=== PATIENT | female | born 1990 | race African-American/Black ===

== ENCOUNTER 2016-10-02 21:02 | Inpatient (IN) | payer OTHER ==
[~2016-10-02] VITALS: Ht 154.9 cm; Wt 75.3 kg
[~2016-10-02 21:02] MED LIST: ANUSOL HC30 GM TOP; CIPRO 500MG TA500 MG PO; IBUPROFEN800 MG PO; MOTRIN 600 MG600 MG PO; PRENATAL1 TA1 PO; ZOFRAN4 M1 PO
[2016-10-02 23:08] LABS: ABSOLUTE BASOPHIL COUNT 0 /CUMM (0.0-0.2); ABSOLUTE EOSINOPHIL COUNT 0.1 /CUMM (0.0-0.7); ABSOLUTE LYMPH COUNT 1.3 /CUMM (1.2-3.4); ABSOLUTE MONOCYTE COUNT 0.6 /CUMM (0.10-0.60); BASOPHIL % 0.3 % (0.0-2.0); EOSINOPHIL % 1.3 % (0-5); GRANULOCYTE % 74.3 % (42.2-75.2); MEAN CORPUSCULAR HGB 25.7 PG (27.0-31.0); MEAN CORPUSCULAR HGB CONC 32.8 G/DL (33.0-37.0); MEAN CORPUSCULAR VOLUME 78.3 FL (81.0-99.0); MEAN PLATELET VOLUME 9.6 FL (7.4-10.4); PLATELET COUNT 214 /CUMM (130-400); RBC DISTRIBUTION WIDTH 15.4 % (11.5-14.5); RED BLOOD CELL CT 3.56 /CUMM (4.20-5.40); WHITE BLOOD CELL COUNT 8.1 /CUMM (4.8-10.8)
--- NOTE | 2016-10-03 06:40 | History & Physical ---
General Information and HPI MD Statement: I have seen and personally examined ERICA CAMACHO and documented this H&P. The patient is a 26 year old female at [39] weeks and [6] days gestation who presented with a chief complaint of [PROM]. Source of Information: police History of Present Illness: 26yo lmp 01/02/16 EDC 10/08/16 at 39w6d who presnts with PROM, amnisure positive. care incomplete due to noncompliance. Never had GCT but Hgb a1c is 5. Urine tox neg. 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 EENTM: Reports: no symptoms. Cardiovascular: Reports: no symptoms. Respiratory: Reports: no symptoms. GI: Reports: no symptoms. Genitourinary: Reports: no symptoms. Musculoskeletal: Reports: no symptoms. Skin: Reports: no symptoms. Neurological/Psychological: Reports: no symptoms. Hematologic/Endocrine: Reports: no symptoms. Immunologic/Allergic: Reports: no symptoms. All Other Systems: Reviewed and Negative Date of LMP: 01/02/16 Exam & Diagnostic Data Obstetric Exam Wgt Gained During : 25 Pelvimetry: gynecoid Dilation (cm): 0 Effacement (%): 0 Station: -2 Membranes: SROM Fluid: clear Fundal Height (cm): 38 Multiple Gestation? No Contractions: q2-4 #1 - FHR Baseline: 120 Category: 1 Estimated Weight: 6.5 Presentation: cephalic Patient for Induction? No Physical Exam: HEENT: NCAT Chest: CTA CV: nl S1S2 Abd: cephalic, gravid, 6.5 Ext: no c/c/e Labs Blood Type & Rh: B pos Antibody Screen: neg Hct/Hgb & Platelets #1: Hct/Hgb & Platelets #2: [id number] Rubella: imm VDRL #1: nr VDRL #2: nr HbsAg: neg HIV #1: neg HIV #2 neg 1 Hr P Group B Strep: unknown Initial Ultrasound: wnl Anatomy Ultrasound: wnl Ultrasound for EFW: n/a Genetic Testing: neg Assessment/Plan Assessment/Plan: PROM at term expectant mgmt As Ranked By This Provider Problem List: 1. Core Measures/Miscellaneous Venous Thromboembolism VTE Risk Factors: / VTE Contraindications: No Contraindications VTE Prophylaxis Ordered Inpt: Early Ambulation No Pharm VTE Prophylaxis D/T: Active Bleeding VTE Diagnosis: No VTE Type: NONE VTE Confirmed by (Test): NONE Beta Marjorie Is Beta Marjorie a Home Med? No Antibiotics Is Patient on Antibiotics? No
--- NOTE | 2016-10-03 06:43 | PN- Obstetrical ---
Subjective Subjective: strong contractions Objective Last 24 Hrs of Vital Signs/I&O vss Physical Exam: Fhr with repetiitive variable decels and tachysystole Cx: 6/100/0 Obstetric Exam Dilation (cm): 6 Effacement (%): 100 Station: 0 Membranes: SROM Fluid: clear Multiple Gestation? No Contractions: q1-2 #1 - FHR Baseline: 120 Category: 1 Estimated Weight: 6.5 Presentation: cephalic Assessment/Plan Assessment/Plan Cat 2 tracing IFM placed Problem List: 1.
--- NOTE | 2016-10-03 10:56 | Labor & Delivery Summary ---
Delivery Summary Vaginal Delivery: Vaginal: spontaneous Episiotomy/Lacerations: Episiotomy/Lacerations: epis Type: rml Repair: 3-0/int Anesthesia: local/epi Placenta: Placenta: spontanteous, normal, 3 vessel Baby's Weight: 7/1 Apgars - 1 Min: 8 Apgars - 5 Min: 9
[2016-10-03 15:49] LABS: HEMATOCRIT 27.9 % (37-47)
[2016-10-04 09:32] LABS: ABSOLUTE BASOPHIL COUNT 0 /CUMM (0.0-0.2); ABSOLUTE EOSINOPHIL COUNT 0 /CUMM (0.0-0.7); ABSOLUTE LYMPH COUNT 1.9 /CUMM (1.2-3.4); BASOPHIL % 0.1 % (0.0-2.0); EOSINOPHIL % 0.2 % (0-5); GRANULOCYTE % 80.2 % (42.2-75.2); HEMATOCRIT 25.4 % (37-47); MEAN CORPUSCULAR HGB 25.5 PG (27.0-31.0); MEAN CORPUSCULAR HGB CONC 32.7 G/DL (33.0-37.0); MEAN PLATELET VOLUME 10.4 FL (7.4-10.4); PLATELET COUNT 198 /CUMM (130-400); RBC DISTRIBUTION WIDTH 15.5 % (11.5-14.5); RED BLOOD CELL CT 3.26 /CUMM (4.20-5.40)
[2016-10-04 09:36] LABS: WHITE BLOOD CELL COUNT 14.9 /CUMM (4.8-10.8)
[2016-10-04 14:03] VITALS: BP 100/58
--- NOTE | 2016-10-04 16:59 | PN- Post Delivery/GYN ---
Subjective Subjective: NO C/O Review of Systems: NEG Objective Last 24 Hrs of Vital Signs/I&O Vital Signs Date Time Temp Pulse Resp B/P Pulse O2 O2 Flow FiO2 Ox Delivery Rate 10/04 1403 100/58 Physical Exam: FF EXT NT Assessment/Plan Assessment/Plan S/P PPD1 STABLE CIRC DISCHARGE TOMORROW Problem List: 1.
[2016-10-04] MEDS ORDERED: DOCUSATE SODIU100 M3 PO (17:00)
[2016-10-04] MEDS ORDERED: IBUPROFEN800 M1 PO (17:00)
== END 2016-10-05 13:10 | DRG 560 ==
LOC: CBCO 21:02 → GNO 22:06
PROVIDERS: ADMIT Obstetrics & Gynecology
DX: O42.92 Full-term premature rupture of membranes, unspecified as to length of time between rupture and onset of labor (principal); Z3A.39 39 weeks gestation of pregnancy; Z37.0 Single live birth; K21.9 Gastro-esophageal reflux disease without esophagitis
CPT/HCPCS: GNOS; 36415; 80307; 81003; 84112; 87086; 87389; G0463; J0690; J1050; J3105; J7120